=== PATIENT | male | born 1980 | race Caucasian/White ===

== ENCOUNTER → 2018-06-19 15:28 | Outpatient (CLI) | payer OTHER, SELFPAY ==
--- NOTE | 2018-06-19 | DI.RAD.S_ITS ---
PROCEDURE: XR ANKLE LT MIN 3V INDICATIONS: LT ANKLE PAIN TECHNIQUE: 3 views of the ankle were acquired. COMPARISON: None. FINDINGS: Bones: No fractures or dislocations. Small plantar calcaneal enthesophyte. Small osteophytes over the dorsal aspect of the talus and distal anterior tibia. Ankle mortise is normally aligned. No suspicious bony lesions. Soft tissues: No tibiotalar joint effusion. Achilles tendon appears normal. Nonspecific soft tissue swelling overlying the medial and lateral malleolus. IMPRESSION: 1. Medial and lateral malleolar soft tissue swelling without underlying fracture or dislocation. 2. Plantar calcaneal enthesophyte. 3. Minimal anterior tibiotalar degenerative change. Dictated by: Berhane Meadows M.D. on 06/19/2018 at 17:48 Approved by: Berhane Meadows M.D. on 06/19/2018 at 17:51
== END ==
PROVIDERS: Visit Provider Family Medicine
DX: M25.572 Pain in left ankle and joints of left foot (principal); M77.32 Calcaneal spur, left foot
CPT/HCPCS: 73610

== ENCOUNTER → 2018-07-02 15:37 | Outpatient (CLI) | payer OTHER, SELFPAY ==
--- NOTE | 2018-07-02 | DI.MRI.S_ITS ---
PROCEDURE: MR ANKLE LT WO CON INDICATIONS: LEFT FOOT AND ANKLE PAIN TECHNIQUE: Noncontrast sagittal T1 spin echo and T2 fast spin echo with fat saturation, axial proton density fast spin echo and T2 fast spin echo with fat saturation, coronal T1 spin echo and T2 fast spin echo with fat saturation through the ankle/hindfoot. COMPARISON: [facility], CR, XR ANKLE LT MIN 3V, 06/19/2018, 15:37. FINDINGS: Image quality: Diagnostic. Bones and joints: No acute fracture or dislocation is evident involving the osseous structures of the midfoot or hindfoot. There are moderate degenerative changes noted involving the tibiotalar joint with a small defect of the head articular cartilage along the anterior margin of the tibial plafond and and associated bony irregularity, which could potentially be have been related to previous injury. Degenerative marrow edema related to the defect of the hyaline articular cartilage along the medial corner of the talar dome is present. Additional areas of mild marrow edema involving the medial and lateral malleoli are present. No osteochondral fragments are evident. The ankle mortise appears to be well-maintained. There are mild degenerative changes noted involving the talonavicular joint. There is a large tibiotalar joint effusion. Medial structures: The deltoid ligament is irregular and heterogeneous, likely partially torn. Thickening and increased signal involving the superomedial band of the spring ligament is present. The plantar components of the spring ligament are intact. The flexor hallucis longus, flexor digitorum longus, and tibialis posterior tendons appear intact and within normal limits with the exception of a moderate amount of fluid contained within the flexor hallucis longus tendon sheath. The posterior tibial nerve through the region of the tarsal tunnel appears to be within normal limits. No significant extrinsic mass effect is evident on the neurovascular bundle. Lateral structures: The anterior and posterior distal tibiofibular ligaments are thickened. Irregularity of the anterior talofibular ligament is present with at least moderate to high-grade partial-thickness tearing, which may be chronic. The posterior talofibular ligament is intact. The calcaneofibular ligament is thickened and otherwise intact. There is prominent thickening identified involving the peroneus longus tendon, which is subluxed laterally at the level of the lateral malleolus. No significant tearing is identified. There is slight increased signal noted involving the peroneus brevis tendon. Fluid is contained within their corresponding tendon sheaths. No full-thickness tears are identified. Normal fatty signal is seen within the sinus tarsi. Anterior structures: The tibialis anterior, extensor hallucis longus, and extensor digitorum longus tendons appear intact. Posterior and plantar structures: Achilles tendon is intact. Mild increased signal is noted involving the Achilles tendon. Medial and lateral bands of the plantar fascia are of normal thickness. A small plantar calcaneal spur is present. The plantar fascia is otherwise unremarkable. IMPRESSION: 1. Moderate degenerative changes of the tibiotalar joint may be related to previous trauma and injury of the cartilage. No osteochondral fragments are evident. 2. Scarring of the medial and lateral ankle ligaments is present. There likely is a chronic full-thickness tear of the anterior talofibular ligament versus a near complete tear. 3. Flexor hallucis longus tenosynovitis. 4. Moderate peroneus longus tendinopathy without significant tearing. There is mild peroneus brevis tendinopathy. 5. Mild distal Achilles tendinopathy. 6. Small plantar calcaneal spur. The plantar fascia is within normal limits. 7. Moderate-sized tibiotalar joint effusion. Dictated by: Narendra Chambers M.D. on 07/02/2018 at 16:29 Approved by: Narendra Chambers M.D. on 07/02/2018 at 17:02
== END ==
PROVIDERS: Visit Provider Family Medicine
DX: M25.572 Pain in left ankle and joints of left foot (principal); M19.072 Primary osteoarthritis, left ankle and foot; M65.872 Other synovitis and tenosynovitis, left ankle and foot; M77.32 Calcaneal spur, left foot; M25.475 Effusion, left foot
CPT/HCPCS: 73718

== ENCOUNTER → 2019-04-21 12:10 | Oncology outpatient (ONC) | payer OTHER, SELFPAY ==
[2019-03-03 09:11] VITALS: BP 123/80; PULSE 65; RESP 18; TEMP 36.7; O2SAT 100
--- NOTE | 2019-03-03 09:36 | P.CONONC_ITS ---
History of Present Illness - Data of Consult Consult date: 03/03/19 Primary Care Provider: Ko Heart MD - Consult Narrative Narrative: Diagnosis: Rectal cancer, T3 N2, MMRp Previous treatment: 1. Four cycles of neoadjuvant FOLFOX History of present illness: Rashaun Hills is a 38 year old male who is seen today to assist with management of his neoadjuvant chemotherapy. Patient reports that he had been having blood in his stools for about 6 months. He began to develop some change in his bowel habits that was interfering in his ability to eat. Because of this, he sought medical attention. He was found to have a mass in the distal r ectum. He has been on neoadjuvant chemotherapy with FOLFOX at the [facility]. He has completed a total of 4 cycles thus far. He is scheduled for a total of 8 neoadjuvant treatment cycles. He finds that the chemotherapy has been going fairly well but he is having increasing fatigue. He has had some occasional nausea but no vomiting. He has had some diarrhea alternating with constipation. He has had some transient neuropathy but not any long-lasting. He finds that the drive to [place] to disconnect his pump is becoming increasingly difficult and requests being seen here to have that performed. His past medical history is otherwise notable for some prior orthopedic surgery for fractures. His family history is negative for colon cancer or other malignancy. He did have genetic testing with no abnormalities found. Social history: He is . 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 He does not smoke. He lives in [place]. CC: Robin Jha MD Home Medications and Allergies Home Medications Medication Instructions Recorded Confirmed Type methocarbamol 500 mg PO PRN PRN 03/03/19 03/03/19 History ondansetron 8 mg PO Q8H PRN 03/03/19 03/03/19 History oxycodone 5 mg PO Q6H PRN 03/03/19 03/03/19 History polyethylene glycol 3350 17 g PO DAILY PRN 03/03/19 03/03/19 History prochlorperazine maleate 10 mg PO Q6H PRN 03/03/19 03/03/19 History Allergies Allergy/AdvReac Type Severity Reaction Status Date / Time No Known Allergies Allergy Uncoded 06/25/18 15:21 Review of Systems - Patient Self-Reported Symptoms SR Constitution: Chills, Weight loss/gain, Fatigue/Malaise SR ears, nose, mouth, throat issues: Changes in taste SR Gastrointestinal issues: Poor or no appetite, Nausea, Vomiting, Diarrhea, Abdominal pain SR Neuro issues: Numbness or tingling SR Endocrine issues: Cold intolerance Constitutional: decreased activity level Gastrointestinal: constipation, diarrhea Hematologic/Lymphatic: no anemia, no enlarged lymph nodes Exam Vital signs: Vital Signs Temp Pulse Resp BP Pulse Ox 03/03/19 09:11 98.1 F 65 18 123/80 100 Intake and Output 03/02/19 03/03/19 03/03/19 23:59 07:59 15:59 Other: Weight 83.1 kg Patient Weight 03/03/19 23:59 Weight 83.1 kg - Constitutional positive no acute distress, positive average body habitus - Routine HEENT Exam Head: Present: normocephalic, atraumatic Eye: Present: EOMI, PERRL. Absent: conjunctival icterus, scleral injection ENT: Present: mucous membranes moist, oropharynx clear - Routine Neck Exam Present: supple. Absent: lymphadenopathy, thyromegaly - Routine Respiratory Exam Present: Clear to auscultation bilaterally. Absent: rales, wheezes - Routine Cardiovascular Exam Present: RRR, S1, S2. Absent: murmur - Routine Abdominal Exam Present: soft, normoactive bowel sounds. Absent: tenderness, organomegaly, mass - Routine Extremities Exam Absent: cyanosis, clubbing, edema - Routine Back/Spine Exam Back/Spine: Absent: vertebral tenderness - Routine Skin Exam Present: intact. Absent: petechiae, rash - Routine Neurological Exam Present: alert, oriented X3 - Routine Psychiatric Exam Present: normal affect, normal thought process Assessment and Plan (1) Rectal cancer Current visit: Yes Status: Acute A 38-year-old man with stage III rectal cancer. He is undergoing neoadjuvant chemotherapy under the direction of physicians at the [facility]. It would be more convenient for him to get his port disconnected here after his chemotherapy cycles and will trying get that scheduled for him. His next cycle will begin on Friday and finish on Friday. Will have our nurses investigate whether home health disconnect might be an option for him. I have not scheduled a follow-up appointment for him here but would be happy to see him again should new questions arise.
--- NOTE | 2019-03-03 09:41 | ONC.MSW ---
Description: New Pt Intro Activity: Briefly introduced myself as the [employer], offered services card, and encouraged pt and his life partner, Ofe, to call should they be in need of any assistance moving forward. They are hear to establish care with Dr. Jha in order for pt to have his chemo pump disconnected as needed. He receives his care at [facility]. No immediate needs were identified at this time.
--- NOTE | 2019-03-24 12:17 | PC.NURSE ---
pt states he tolerated the last 2 days of pump infusion.
--- NOTE | 2019-04-07 12:46 | PC.NURSE ---
Pt came in stable, no complaints. Disconnected pt CADD pump, flushed line with NS and heparin per protocol, Port was deaccessed. Pt stable upon discharge.
[2019-04-21 12:33] VITALS: BP 105/65; PULSE 57; RESP 18; TEMP 36.9; O2SAT 100
--- NOTE | 2019-04-21 12:35 | PC.NURSE ---
pt states doing well with pump infusion. states experiencing neuropathy in hands. port de accessed.
== END ==
PROVIDERS: PCP Family Medicine
DX: C20 Malignant neoplasm of rectum (principal)
CPT/HCPCS: 99203; 99211; 99213

== ENCOUNTER → 2021-03-13 12:31 | Outpatient (CLI) | payer OTHER, SELFPAY ==
--- NOTE | 2021-03-13 | DI.RAD.S_ITS ---
PROCEDURE: XR SHOULDER RT MIN 2V INDICATIONS: RIGHT SHOULDER PAIN TECHNIQUE: 3 views of the shoulder were acquired. COMPARISON: [facility], , SHOULDER MINIMUM 2VIEW RIGHT, 04/16/2017, 6:41. FINDINGS: Bones: No acute, displaced fracture or dislocation. Redemonstrated large osteophyte extending from the inferior aspect of the humeral head. Sclerosis of the superior glenoid and inferior surface irregularity. The glenohumeral joint space is not significantly narrowed. No suspicious bony lesions. Visualized ribs appear intact. Soft tissues: No suspicious soft tissue calcifications. Interval placement of a CT injectable port a catheter. IMPRESSION: No significant interval change. Dictated by: Enzo Florentino M.D. on 03/13/2021 at 12:56 Approved by: Enzo Florentino M.D. on 03/13/2021 at 12:58
== END ==
PROVIDERS: PCP Family Medicine; Referring Provider Family Medicine; Visit Provider Family Medicine
DX: M25.511 Pain in right shoulder (principal)
CPT/HCPCS: 73030